=== PATIENT | female | born 1955 | race Caucasian/White ===

== ENCOUNTER 2020-02-28 09:58 | Emergency (ER) | payer OTHER, SELFPAY ==
[~2020-02-28] VITALS: Ht 167.6 cm; Wt 64.4 kg
[2020-02-28 10:16] VITALS: BP 112/75; Ht 167.6 cm; Wt 64.4 kg
== END 2020-02-28 11:07 | disposition home or self-care (01) ==
LOC: ED 09:58
DX: R51 Headache (principal); M79.10 Myalgia, unspecified site; R53.83 Other fatigue; R06.02 Shortness of breath; R43.9 Unspecified disturbances of smell and taste; R11.10 Vomiting, unspecified; R19.7 Diarrhea, unspecified; Z20.828 Contact with and (suspected) exposure to other viral communicable diseases
CPT/HCPCS: 99406; U0003-CS